=== PATIENT | female | born 1990 | race Caucasian/White ===

== ENCOUNTER 2024-09-13 08:06 | Outpatient (AMB) | payer OTHER, SELFPAY ==
--- NOTE | 2024-09-13 08:11 | A.OFFPC_ITS ---
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 Transferring care from Dr Man ([facility]). Medical records have been requested and have not received. Bag Machine Set Up Operator Required: No Integration Developer: Not Required per policy Accompanied by: Self / Same As Patient Allergies No Known Allergies Allergy (Verified 09/13/24 08:24) Medication List - Last Reconciled 09/13/24 by Sally Leone PA-C citalopram (Celexa) 40 mg PO DAILY lisdexamfetamine (Vyvanse) 20 mg PO DAILY Tobacco use date assessed: 09/13/24 Dental Screening Dental Screen Date: 09/13/24 Did you have a dental visit in the last 12 months?: Yes Did you have a dental problem in the last 6 months where you did not have access to dental care?: No Was dental information given to patient?: Patient has dentist HPI 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 Presenting with vertigo. The patient was hospitalized for vertigo in June and had a symptom recurrence once thereafter. She associates the vertigo with a sensation of ear pulsation and temporarily impaired hearing, predominantly affecting the right ear. During these episodes, the patient likens the sensation to walking on a boat, and these episodes occur approximately once a month. She had a laparoscopic myomectomy and excision for endometrial tissue in 2019. She is up-to-date on her Pap smears was recently seen by [facility] gynecology. She will be seen again in 1 week to start on oral contraceptive pill through their office. [facility] Surgical History History of carpal tunnel release History of bilateral breast reduction surgery History of cholecystectomy History of tonsillectomy History of appendectomy Family History (Updated 09/13/24 @ 08:33 by Sally Leone PA-C) Maternal Grandfather Lung cancer Social History Housing: Apartment Alcohol intake: current Alcohol intake frequency: a few times a month Patient Tobacco Use Status: Never used Tobacco e-Cigarette/Vaping Use: Currently Using Second Hand Smoke Exposure: No service: No Current occupational status: employed Current occupation: Animal care attendent Cognitive needs: No Hearing needs: No Vision needs: Yes (Glasses) Female Reproductive History Menstrual control method: none Total pregnancies: 0 History of abnormal pap smear: No Questionnaire PHQ-9 Over the last 2 weeks, how often have you been bothered by any of the following problems? 1. Little interest or pleasure in doing things: not at all 2. Feeling down, depressed, or hopeless: not at all 3. Trouble falling or staying asleep, or sleeping too much: not at all 4. Feeling tired or having little energy: not at all 5. Poor appetite or overeating: not at all 6. Feeling bad about yourself - or that you are a failure or have let yourself or your family down: not at all 7. Trouble concentrating on things, such as reading the newspaper or watching television: not at all 8. Moving or speaking so slowly that other people could have noticed. Or the opposite - being so fidgety or restless that you have been moving around a lot more than usual: not at all 9. Thoughts that you would be better off or of hurting yourself in some way: not at all Total score: 0 Depression Screening Interpretation: Negative Depression Screening Done: Yes Source: Developed by Drs. Pedro Arechiga, Patricia Seymour, Robin Dalal and colleagues, with an educational rehan from [employer]. Thrive Questionnaire Date Thrive assessed: 09/08/24 I am a: Patient What is your living situation today?: I have a steady place to live Within the past 12 months, did the food you bought not last and you didn't have the money to get more?: Never true Within the past 12 months, did you worry whether your food would run out before you got money to buy more?: Never true Do you have trouble paying for medicines?: No Do you have trouble getting transportation to medical appointments?: No Do you have trouble paying your heating and electricity bill?: No Do you have trouble taking care of your child, family member or friend?: No Do you have trouble with day-to-day activities such as bathing, preparing meals, shopping, managing finances, etc.?: No Are you currently unemployed and looking for a job?: No Are you interested in more education?: No Please select the resources that you would like help with: None Currently or been in a relationship where the following occur: No concerns reported THRIVE Score: 0 AUDIT C Alcohol Use Questionnaire (AUDIT-C) 1. How often do you have a drink containing alcohol?: 2-4 times a month 2. How many drinks containing alcohol do you have on a typical day when you are drinking?: 1 or 2 3. How often do you have six or more drinks on one occasion?: Never Total Score: 2 RAMÍREZ-7 AMB Questionnaire RAMÍREZ-7 Date RAMÍREZ - 7 assessed: 09/13/24 Feeling nervous, anxious, or on edge: 0 = Not at all Not being able to stop or control worryin = Not at all Worrying too much about different things: 0 = Not at all Trouble relaxin = Not at all Being so restless that it is hard to sit still: 0 = Not at all Becoming easily annoyed or irritable: 0 = Not at all Feeling afraid as if something awful might happen: 0 = Not at all Total RAMÍREZ-7 score (0-4 normal; 5-9 mild; 10-14 moderate; 15-21 severe): 0 Source: Developed by Drs. Pedro Arechiga, Patricia Seymour, Robin Dalal and colleagues, with an educational rehan from [employer]. RAMÍREZ-7 Assessment Billing RAMÍREZ-7 Assessment Tool: RAMÍREZ-7 Assessment 52675 Review of Systems Const Denies body aches, Denies chills, Denies fever(s), Denies headache(s) and Denies poor appetite Eyes Reports no additional complaints ENT Denies dysphagia, Reports dizziness (w/vertigo ), Denies headache(s), Denies odynophagia and Reports tinnitus (pulsatile and unilateral (R) ) Card Denies chest pain, Denies syncope, Denies edema, Denies irregular heart rhythm, Denies lightheadedness and Denies dyspnea Resp Denies cough and Denies dyspnea GI Denies abdominal pain, Denies constipation, Denies dysphagia, Denies diarrhea, Denies nausea, Denies odynophagia and Denies vomiting Reports no additional complaints Musc Reports no additional complaints and Denies abnormal gait Skin/Breast Reports system reviewed and no additional complaints, except as documented Neuro Denies abnormal gait, Reports dizziness (w/vertigo ), Denies syncope and Denies headache(s) Psych Reports no additional complaints Physical exam (Primary Care) Vital Signs: Last Vital Signs Temp 97.5 F 09/13/24 08:13 Pulse 66 09/13/24 08:13 BP 110/60 09/13/24 08:13 Pulse Ox 100 09/13/24 08:13 Oxygen Delivery Method Room Air 09/13/24 08:13 BMI result Body Mass Index 25.0 Tobacco/Smoking Status: Tobacco use Status Tobacco use date assessed 09/13/24 09/13/24 08:23 Patient Tobacco Use Status Never used Tobacco 09/13/24 08:25 e-Cigarette/Vaping Use Currently Using 09/13/24 08:25 PHQ-9: PHQ-9 Score PHQ-9: Total score 0 09/13/24 12:06 Depression Screening Interpretation: Negative Thrive Assessment: Date of Thrive Assessment Date Thrive assessed 09/08/24 09/13/24 08:23 Currently or been in a relationship where the following occur: No concerns reported Const General: cooperative, healthy appearing, comfortable and no acute distress Orientation/consciousness: patient oriented x3 HENMT Head: Yes normocephalic Ears: hearing grossly normal bilaterally General nose exam: Normal external nose present Eyes General: appearance normal, both eyes and all related structures Conjunctivae: conjunctivae normal Neck Neck: Yes full ROM and Yes no lymphadenopathy Resp Effort & Inspection: normal respiratory effort Auscultation: clear to auscultation bilaterally, no crackles, no rales, no rhonchi and no wheezes Cardio Rate: regular rate Rhythm: regular rhythm Skin General skin exam: no rashes or lesions noted Neuro General: patient oriented x3 Gait exam (Neuro): Normal gait present Extrem General: Yes normal to inspection, Yes full ROM and No edema Psych Affect: normal affect Attitude: cooperative Insight: Good insight present (Psych) Judgement: Good judgement present (Psych) Coding Level of Care Code New Pt Level 4 (80205) Diagnoses Endometriosis N80.9 ADHD F90.9 Anxiety F41.9 Depression F32.A BPPV (benign paroxysmal positional vertigo) H81.10 Pulsatile tinnitus H93.A9 Cervical cancer screening Z12.4 Additional Codes RAMÍREZ-7 Assessment Billing - RAMÍREZ-7 Assessment Tool: RAMÍREZ-7 Assessment 83676 ([id number]) Assessment & Plan Assessment & Plan (1) Endometriosis: Comment: [facility] laparoscopy w/ excision 2018 Code(s): N80.9 - Endometriosis, unspecified Category: Medical Plan: Continue to follow with [facility] gynecology (2) ADHD: Code(s): F90.9 - Attention-deficit hyperactivity disorder, unspecified type Category: Medical Plan: Patient is currently following with psych provider in [place] for management of ADHD. She feels good on her medication. (3) Anxiety: Code(s): F41.9 - Anxiety disorder, unspecified Category: Medical Plan: Currently following with psych provider in [place] for Celexa. She feels this medication is beneficial and has no concerns today. (4) Depression: Code(s): F32.A - Depression, unspecified Category: Medical Plan: see above (5) BPPV (benign paroxysmal positional vertigo): Code(s): H81.10 - Benign paroxysmal vertigo, unspecified ear Category: Medical Plan: Patient complaining of BPPV associated with unilateral pulsatile tinnitus. Plan to obtain hearing evaluation and referral was placed to ENT. (6) Pulsatile tinnitus: Code(s): H93.A9 - Pulsatile tinnitus, unspecified ear Category: Medical Plan: Patient complaining of unilateral pulsatile tinnitus occurring infrequently and associated with vertigo and has been going on for several months. Plan to obtain audiogram and ENT evaluation. (7) Cervical cancer screening: Comment: [facility] Code(s): Z12.4 - Encounter for screening for malignant neoplasm of cervix Category: Medical Plan: Followed through [facility] for Pap smears and is up-to-date Plan I have proposed a referral for a hearing evaluation followed by an ENT consult to effectively assess and manage her vertigo and auditory complaints. Initiation of physical therapy for vestibular rehabilitation was recommended to alleviate symptoms. I reviewed her mental health status, confirming efficacy of current psychotropic regimen, with her psychiatrist continuing ADHD management. Bloodwork completion was emphasized before her next physical, and attention to her reported urethral discomfort remains pertinent. Scheduled follow-up in three months intends to address holistic wellness, encompassing auditory review outcomes and anxiolytic management validations. control initiation will be monitored for any potential anxieties or side effects. This note was constructed using voice recognition software. While every effort has been made to ensure accuracy and pot lining supervisor, still areas may have been included sometimes these areas may affect the content or meeting of the given symptoms. Total time spent caring for the patient today was 30 minutes. This includes time spent before the visit reviewing the chart, time spent during the visit, and time spent after the visit and documentation. Patient was informed and verbally consented to the use of an ambient scribe for clinic note documentation during this visit. Orders: Orders Comprehensive Met. Panel Today Z00.00 - Encounter for general adult medical examination without abnormal findings Lipid Panel Today Z13.220 - Encounter for screening for lipoid disorders TSH reflex Free T4 Today Z00.00 - Encounter for general adult medical examination without abnormal findings Vitamin B12 and Folate Today Z00.00 - Encounter for general adult medical examination without abnormal findings Vitamin D 25-OH Total Today Z00.00 - Encounter for general adult medical examination without abnormal findings Free T4 (Free Thyroxine) Today Z00.00 - Encounter for general adult medical examination without abnormal findings Complete Blood Count Auto Diff Today Z00.00 - Encounter for general adult medical examination without abnormal findings Referrals Ear/Nose/Throat Referral H81.10 - Benign paroxysmal vertigo, unspecified ear Speech and Hearing Referral H93.A9 - Pulsatile tinnitus, unspecified ear
[2024-09-13 08:13] VITALS: BP 110/60; PULSE 66; TEMP 36.4; O2SAT 100; BMI 25.0
--- OUTSIDE RECORDS SUMMARY | 2024-09-13 08:18 | XMS_ITS | Clinical Summary ---
Author Organization [facility] Address [address] [place] [address] Care Team Providers Care Search Engineer Name Role Phone René Curry DO Primary Care Provider [phone] Surgical History Surgery Date Site/Laterality Comments APPENDECTOMY PROCEDURE:APPENDECTOMY TONSILLECTOMY PROCEDURE:TONSILLECTOMY CHOLECYSTECTOMY PROCEDURE:CHOLECYSTECTOMY BREAST SURGERY 2014 PROCEDURE:REDUCTION MAMMAPLASTY CARPAL TUNNEL RELEASE 2015 PROCEDURE:CARPAL TUNNEL RELEASE MYOMECTOMY 2019 PROCEDURE:MYOMECTOMY Social History Tobacco Use Types Packs/Day Years Used Date Smoking Tobacco: Never Smokeless Tobacco: Never Alcohol Use Standard Drinks/Week Comments Not Currently 0 (1 standard drink = 0.6 oz pur e alcohol) Comments Unknown Sex and Gender Information Value Date Recorded Sex Assigned at Not on file Legal Sex Female 2:56 AM EST Gender Identity Not on file Sexual Orientation Not on file Obstetrics History Plan of Treatment Health Maintenance Due Date Last Done Comments DTaP,Tdap,and Td Vaccines (1 - Tdap) 10/11/2007 Hepatitis B Vaccines (1 of 3 - 19+ 3-dose series) 10/11/2007 Cervical Cancer Screening: P ap Smear 2009 COVID-19 Vaccine ( - 2023-2 5 season) 2024 Influenza Vaccine (Season Ended) 2025 HIB Vaccines Aged Out No longer eligi ble based on patient's age to complete this topic HPV Vaccines Aged Out No longer eligi ble based on patient's age to complete this topic Hepatitis A Vaccines Aged Out No long er eligible based on patient's age to complete this topic IPV Vaccines Aged Out No longer eligi ble based on patient's age to complete this topic MMR Vaccines Aged Out No longer eligi ble based on patient's age to complete this topic Meningococcal ACWY Vaccine Aged Out N o longer eligible based on patient's age to complete this topic Meningococcal B Vaccine Aged Out No l onger eligible based on patient's age to complete this topic Pneumococcal Vaccine: Pediat rics (0 to 5 Years) and At-Risk Patients (6 to 64 Years) Aged Out No longer eligible b ased on patient's age to complete this topic RSV Immunization Patients Un jakob 20 months Aged Out No longer eligible b ased on patient's age to complete this topic Varicella Vaccines Aged Out No longer eligible based on patient's age to complete this topic Care Teams Search Engineer Relationship Specialty Start Date End Date René Curry DO [address] [place] [address] [phone] PCP - General Internal Medicine 06/23/12
--- OUTSIDE RECORDS SUMMARY | 2024-09-13 08:18 | XMS_ITS | Clinical Summary ---
Author Organization [facility] Address [address] [place] [address] Care Team Providers Care Garbage Pick Up Worker Name Role Phone Unavailable Primary Care Provider Unavailabl e Allergies No known active allergies Medications Medication Sig Dispensed Refills Start Date End Date Status amphetamine-dextroamp hetamine (ADDERALL) 10 MG tablet Take 25 mg by mouth daily. 0 Active escitalopram (LEXAPRO) 20 MG tablet Take 40 mg by mouth daily. 0 Active oxybutynin (DITROPAN) 5 MG tablet Take 5 mg by mouth 3 (three) times a day. 0 Active metoclopramide (REGLAN) tablet 10 mg Take 1 tablet (10 mg total) by mouth 3 (three) times a day as needed (nausea, headache). 12 tablet 0 07/05/2021 Active Social History Tobacco Use Types Packs/Day Years Used Date Smoking Tobacco: Never Smokeless Tobacco: Never Alcohol Use Standard Drinks/Week Comments Not Currently 0 (1 standard drink = 0.6 oz pur e alcohol) Sex and Gender Information Value Date Recorded Sex Assigned at Female 07/05/2021 8:38 PM EST Gender Identity Not on file Sexual Orientation Not on file Job Start Date Occupation Industry Not on file Not on file Not on file Last Filed Vital Signs Vital Sign Reading Time Taken Comments Blood Pressure 112/80 07/05/2021 8:41 PM EST Pulse 91 07/05/2021 8:41 PM EST Temperature 36.5 ??C (97.7 ??F) 07/05/2021 8:41 PM ES T Respiratory Rate 18 07/05/2021 8:41 PM EST Oxygen Saturation 99% 07/05/2021 8:41 PM EST Inhaled Oxygen Concentration - - Weight - - Height - - Body Mass Index - - Plan of Treatment Health Maintenance Due Date Last Done Comments Hepatitis B Vaccines (1 of 3 - 3-dose series) 1988 Hepatitis C Screening 1988 COVID-19 Vaccine (#1) 04/12/1989 Depression Screening 2000 Preventative Health Evaluation 2006 DTap / Tdap / Td (1 - Tdap) 10/11/2007 Cervical Cancer Screening (P ap Smear) 2009 Influenza Vaccine (#1) 2024 03/02/2018 Pneumococcal Vaccine Aged Out No long er eligible based on patient's age to complete this topic RSV Ped < 20 months Aged Out No longe r eligible based on patient's age to complete this topic
== END 2024-09-13 08:48 | disposition home or self-care (01) ==
LOC: HO.HMCH 08:07
DX: N80.9 Endometriosis, unspecified (principal); F90.9 Attention-deficit hyperactivity disorder, unspecified type; F41.9 Anxiety disorder, unspecified; F32.A Depression, unspecified; H81.10 Benign paroxysmal vertigo, unspecified ear; H93.A9 Pulsatile tinnitus, unspecified ear; Z12.4 Encounter for screening for malignant neoplasm of cervix

== ENCOUNTER → 2024-09-13 08:06 | Outpatient (BNVA) | payer OTHER, SELFPAY | DX: N80.9 Endometriosis, unspecified (principal); F90.9 Attention-deficit hyperactivity disorder, unspecified type; F41.9 Anxiety disorder, unspecified; F32.A Depression, unspecified; H81.10 Benign paroxysmal vertigo, unspecified ear; H93.A9 Pulsatile tinnitus, unspecified ear | CPT/HCPCS: 96127 ==

== ENCOUNTER 2025-02-18 10:44 | Outpatient (REF) | payer OTHER, SELFPAY ==
--- OUTSIDE RECORDS SUMMARY | 2025-02-18 11:46 | XMS_ITS | Clinical Summary ---
Author Organization [facility] Address [address] [place] [address] Care Team Providers Care Silo Tender Name Role Phone René Curry DO Primary Care Provider [phone] Surgical History Surgery Date Site/Laterality Comments APPENDECTOMY [...] Cervical Cancer Screening: P ap Smear 2009 Depression Screening 05/19/2024 COVID-19 Vaccine ( - 2023-2 5 season) 2025 Influenza Vaccine (#1) 2025 RSV Immunization Adult Patie nts (1 - 1-dose 75+ series) 10/11/2063 HIB Vaccines Aged Out No longer eligi [...] 5 Years) and At-Risk Patients (6 to 49 Years) Aged Out No longer eligible b ased on patient's age to complete this topic RSV Immunization Patients Un jakob 20 months Aged Out No longer eligible b ased on patient's age to complete this topic Varicella Vaccines Aged Out No longer eligible based on patient's age to complete this topic Care Teams Silo Tender Relationship Specialty Start Date End Date René Curry DO [address] [place] [phone] PCP - General Internal Medicine 06/23/12
--- OUTSIDE RECORDS SUMMARY | 2025-02-18 11:46 | XMS_ITS ---
Author Name [facility] Organization Unknown Care Team Organization Name Specialty Phone Email Start Date End Da te [facility] NULL Primary Care 03/26/2022 01/05/2024
--- OUTSIDE RECORDS SUMMARY | 2025-02-18 11:46 | XMS_ITS | Clinical Summary ---
Author Organization [facility] Address [address] [place] [address] Care Team Providers Care Abstract Writer Name Role Phone Unavailable Primary Care Provider [...] 91 07/05/2021 8:41 PM EST Temperature 36.5 C (97.7 F) 07/05/2021 8:41 PM EST Respiratory Rate 18 07/05/2021 8:41 PM EST [...] (P ap Smear) 2009 Influenza Vaccine (#1) 2025 03/02/2018 Pneumococcal Vaccine Aged Out No long er eligible based on patient's age to complete this topic RSV Ped < 20 months Aged Out No longe r eligible based on patient's age to complete this topic
[2025-02-18 13:31] LABS: MANUAL DIFF FLAG NO
[2025-02-18 13:55] LABS: Hematocrit 43.2 % (37.0-47.0); Hemoglobin 14.6 g/dl (12.0-16.0); Imm Gran Abs Auto 0.01 X10*3/uL (0.00-0.03); Imm Gran Pct Auto 0.1 % (0.0-0.4); Lymphocytes Absolute Auto 2.8 X10*3/uL (1.2-4.9); Mean Corpuscular HGB Conc 33.8 g/dl (31.0-35.0); Mean Corpuscular Hemoglobin 30.4 pg (27.0-33.0); Mean Corpuscular Volume 90.0 fL (80.0-98.0); NRBC Abs Auto 0.000 X10*3/uL (0.0-0.012); NRBC Pct Auto 0.0 /100WBC (0.0-0.2); Platelet Count 306 X10*3/uL (160-400); Red Blood Count 4.80 X10*6/uL (4.20-5.50); White Blood Count 7.0 X10*3/uL (4.8-10.8)
[2025-02-18 14:29] LABS: Alanine Aminotransferase 22 U/L (0-31); Albumin Level 4.8 g/dL (3.5-5.0); Alkaline Phosphatase 69 U/L (39-117); Anion Gap 10 (12-20); Aspartate Amino Transferase 32 U/L (5-31); Blood Urea Nitrogen 16 mg/dL (9-16); Calcium 9.5 mg/dL (8.4-10.2); Carbon Dioxide 27 mmol/L (22-29); Chloride 104 mmol/L (96-108); Cholesterol 183 mg/dL (<200); Estimated Glomerular Filt Rate > 60; HDL Cholesterol 78 mg/dL (>40); Potassium 4.2 mmol/L (3.3-5.1); Sodium 137 mmol/L (135-145); Total Protein 7.1 g/dL (6.5-8.0); Triglycerides 65 mg/dL (<150)
[2025-02-18 14:45] LABS: Free T4 (Free Thyroxine) 0.92 ng/dL (0.71-1.85)
[2025-02-18 14:55] LABS: Folate 10.7 ng/mL (> or = 4.0); Vitamin B12 620 pg/mL (200-900)
== END 2025-02-18 10:45 | disposition home or self-care (01) ==
LOC: HO.HMGCLDS 10:44
DX: Z00.00 Encounter for general adult medical examination without abnormal findings (principal); Z13.220 Encounter for screening for lipoid disorders; Z13.6 Encounter for screening for cardiovascular disorders; Z13.21 Encounter for screening for nutritional disorder; Z13.29 Encounter for screening for other suspected endocrine disorder
CPT/HCPCS: 36415; 80053; 80061; 82306; 82607; 82746; 84439; 84443; 85025